=== PATIENT | male | born 1930 | race Caucasian/White ===

== ENCOUNTER 2017-04-19 14:23 | Inpatient (IN) | payer MEDICARE ==
[2017-04-19] VITALS (9 sets, daily range): BP systolic 106–139; BP diastolic 53–86; PULSE 67–85; RESP 14–19; TEMP 97.7–98.4; O2SAT 98–100
[~2017-04-19] VITALS: Ht 175.3 cm; Wt 68.0 kg
[~2017-04-19 14:23] MED LIST changes: -PANT40TA3 PO
[2017-04-19 15:32] LABS: AUTOMATED NEUTROPHIL # 7.5 TH/MM3 (1.8-7.7); BASOPHIL % 0.5 % (0.0-2.0); EOSINOPHIL # 0.1 TH/MM3 (0-0.4); EOSINOPHIL % 1.4 % (0.0-4.0); LYMPH % 5.3 % (9.0-44.0); LYMPHOCYTE # 0.5 TH/MM3 (1.0-4.8); MEAN CELL VOLUME 63.5 FL (80.0-100.0); MEAN CORPUSCULAR HEMOGLOBIN 17.9 PG (27.0-34.0); MEAN PLATELET VOLUME 6.3 FL (7.0-11.0); MONOCYTE # 0.6 TH/MM3 (0-0.9); NEUT % 85.8 % (16.0-70.0); PLATELET COUNT 496 TH/MM3 (150-450); RED BLOOD COUNT 3.05 MIL/MM3 (4.50-5.90); RED CELL DISTRIBUTION WIDTH 20.5 % (11.6-17.2)
[2017-04-19 15:44] LABS: INTERNATIONAL NORMALIZED RATIO 1.1 RATIO; PROTHROMBIN TIME - PATIENT 10.8 SEC (9.8-11.6)
[2017-04-19 15:46] LABS: MEAN CORPUSCULAR HGB CONC 28.1 % (32.0-36.0)
[2017-04-19 15:49] LABS: HEMATOCRIT 19.4 % (39.0-51.0); HEMOGLOBIN 5.5 GM/DL (13.0-17.0); WHITE BLOOD COUNT 8.8 TH/MM3 (4.0-11.0)
[2017-04-19 15:58] LABS: ALBUMIN 2.3 GM/DL (3.4-5.0); AST (GOT) 16 U/L (15-37); BICARBONATE 26.2 MEQ/L (21.0-32.0); BLOOD UREA NITROGEN 21 MG/DL (7-18); CALCIUM 8.4 MG/DL (8.5-10.1); CHLORIDE 107 MEQ/L (98-107); GLOMERULAR FILTRATION RATE 71 ML/MIN (>89); GLUCOSE,RANDOM 100 MG/DL (74-106); SODIUM (NA) 142 MEQ/L (136-145)
[2017-04-19 16:02] LABS: ALKALINE PHOSPHATASE 88 U/L (45-117); ALT (GPT) 11 U/L (12-78); TOTAL BILIRUBIN ADULT 0.5 MG/DL (0.2-1.0); TOTAL PROTEIN 6.9 GM/DL (6.4-8.2)
--- NOTE | 2017-04-19 16:52 | PD ---
HPI Chief Complaint: Abnormal Results Time Seen by Provider: 14:54 Travel History International Travel<30 days: No Contact w/Intl Traveler<30days: No Traveled to known affect area: No History of Present Illness HPI This is an 87-year-old male who presents to the emergency department with anemia. His family member reports that he has been increasingly weak, constant , moderate severity over the past 2 months associated with several episodes of passing out. The patient denies any blood in his stool or black tarry stools. He has a history of colon cancer and has a colostomy. He does not like to go to doctors and has not seen a GI doctor in a long time. He was seen by primary care doctor who ordered routine blood work which was done this morning and he was found to have a hemoglobin of 5.5. PFSH Past Medical History Cancer: Yes (COLON CA) Diminished Hearing: Yes (HEARING AIDS) Medical other: Yes Tetanus Vaccination: > 5 Years Influenza Vaccination: No Past Surgical History Abdominal Surgery: Yes (HERNIA REPAIR) Other Surgery: Yes (COLOSTOMY) Social History Alcohol Use: No Tobacco Use: No Substance Use: No Allergies-Medications (Allergen,Severity, Reaction): Coded Allergies: penicillin G (Verified Allergy, Intermediate, hives, 04/19/17) Reported Meds & Prescriptions Reported Meds & Active Scripts Active No Active Prescriptions or Reported Medications Review of Systems Except as stated in HPI: all other systems reviewed are Neg Physical Exam Narrative GENERAL:Well appearing, no acute distress SKIN: Pale HEAD: Atraumatic. Normocephalic. EYES: Pupils equal and round. No injection or drainage. Pale sclera. ENT: Moist mucous membranes NECK: Trachea midline. CARDIOVASCULAR: Regular rate and rhythm. No murmur appreciated. RESPIRATORY: Clear to auscultation. Breath sounds equal bilaterally. GASTROINTESTINAL: Abdomen soft, non-tender, nondistended. Ostomy is pink, patent and productive. MUSCULOSKELETAL: No obvious deformities. NEUROLOGICAL: Awake and alert. No obvious cranial nerve deficits. Moving all extremities. PSYCHIATRIC: Appropriate mood and affect; insight and judgment normal. Data Data Last Documented VS Vital Signs Date Time Temp Pulse Resp B/P (MAP) Pulse Ox O2 Delivery O2 Flow Rate FiO2 04/19/17 16:44 74 16 120/86 (97) 99 Room Air 04/19/17 14:30 98.2 Orders Orders Complete Blood Count With Diff (04/19/17 14:55) Comprehensive Metabolic Panel (04/19/17 14:55) Prothrombin Time / Inr (Pt) (04/19/17 14:55) Act Partial Throm Time (Ptt) (04/19/17 14:55) Type And Screen (04/19/17 14:55) ^ Insert Iv (04/19/17 14:55) Sodium Chloride 0.9... W/Pantoprazole In (04/19/17 17:46) Sodium Chloride 0.9... W/Pantoprazole In (04/19/17 17:46) Red Blood Cells (Rbc) (04/19/17 16:53) Blood Product Administration (04/19/17 16:53) Sodium Chlor 0.9% 250 Ml Inj (Ns 250 Ml (04/19/17 17:00) Admit Order (Ed Use Only) (04/19/17 16:53) Labs Laboratory Tests Test 04/19/17 15:00 White Blood Count 8.8 TH/MM3 Red Blood Count 3.05 MIL/MM3 Hemoglobin 5.5 GM/DL Hematocrit 19.4 % Mean Corpuscular Volume 63.5 FL Mean Corpuscular Hemoglobin 17.9 PG Mean Corpuscular Hemoglobin Concent 28.1 % Red Cell Distribution Width 20.5 % Platelet Count 496 TH/MM3 Mean Platelet Volume 6.3 FL Neutrophils (%) (Auto) 85.8 % Lymphocytes (%) (Auto) 5.3 % Monocytes (%) (Auto) 7.0 % Eosinophils (%) (Auto) 1.4 % Basophils (%) (Auto) 0.5 % Neutrophils # (Auto) 7.5 TH/MM3 Lymphocytes # (Auto) 0.5 TH/MM3 Monocytes # (Auto) 0.6 TH/MM3 Eosinophils # (Auto) 0.1 TH/MM3 Basophils # (Auto) 0.0 TH/MM3 CBC Comment AUTO DIFF Differential Comment AUTO DIFF CONFIRMED Prothrombin Time 10.8 SEC Prothromb Time International Ratio 1.1 RATIO Activated Partial Thromboplast Time 25.9 SEC Blood Urea Nitrogen 21 MG/DL Creatinine 1.00 MG/DL Random Glucose 100 MG/DL Total Protein 6.9 GM/DL Albumin 2.3 GM/DL Calcium Level 8.4 MG/DL Alkaline Phosphatase 88 U/L Aspartate Amino Transf (AST/SGOT) 16 U/L Alanine Aminotransferase (ALT/SGPT) 11 U/L Total Bilirubin 0.5 MG/DL Sodium Level 142 MEQ/L Potassium Level 4.4 MEQ/L Chloride Level 107 MEQ/L Carbon Dioxide Level 26.2 MEQ/L Anion Gap 9 MEQ/L Estimat Glomerular Filtration Rate 71 ML/MIN MDM Medical Decision Making Medical Screen Exam Complete: Yes Emergency Medical Condition: Yes Interpretation(s) Afebrile, no tachycardia, normotensive Hemoglobin is 5.5 MCV is 63 Electrolytes are reassuring Coags are normal Differential Diagnosis Upper GI bleed, lower GI bleed, anemia of chronic disease, malignancy Narrative Course This is an 87-year-old male who presents to the emergency department with generalized weakness that has been going on for 2 months. He was placed on a monitor and an IV was established. He has a hemoglobin of 5.5 on Labs. Hemoccult is positive. Patient will be placed on IV pantoprazole and admitted for GI consultation and blood transfusion. Physician Communication Physician Communication Discussed with resident service Diagnosis Primary Impression: GI bleed Qualified Codes: K92.2 - Gastrointestinal hemorrhage, unspecified Admitting Information Admitting Physician Requests: Admit Scripts No Active Prescriptions or Reported Meds Natasha Juan MD Apr 19, 2017 16:52
[2017-04-19] MEDS ORDERED: SODIUM CHLOR 0.9% 250 ML INJ 250 ML IV ONE (17:00)
[2017-04-19] MEDS ORDERED: PANTOPRAZOLE INJ 80 MG in SODIUM CHLORIDE 0.9% INJ 35 ML IV ONE (17:46)
[2017-04-19] MEDS: PANTOPRAZOLE INJ 80 MG in SODIUM CHLORIDE 0.9% INJ 100 ML IV SCH (17:46)
--- NOTE | 2017-04-19 18:21 | HHI.HP ---
[facility] Service Family Medicine Primary Care Physician Nikolas Richards M.D. Admission Diagnosis gi bleed Diagnoses: International Travel<30 Days: No Contact w/Intl Traveler<30days: No Known Affected Area: No History of Present Illness 87 y/o M, hx of colon cancer and colostomy placement 5 years ago, is sent in by PCP for low hemoglobin. The patient is disgruntled on the time of exam and it is difficult to obtain a history. He has been feeling more fatigued for the last 2 months. Denies any SOB. He says he was sleeping much more than usual and was fatigued more during they day. He made an appt with his doctor to try to figure out the reason. He has never noticed any blood or black in his stool. He has had some nausea and vomiting x 1.5 months in December and January. It was difficult for him to swallow anything at that time. All these sx went away except for the fatigue. Denies night sweats. On review of systems, He has had mild abdominal for 2 months, a mild burning pain over his umbilical area. Denies CP/SOB/dizziness. He last saw his oncologist 5 years ago. He was due for a checkup 3 years ago and never went. He states his colorectal surgeon has since retired and he no longer has anyone to follow with. Review of Systems Constitutional: COMPLAINS OF: Weight loss (10lbs) Endocrine: DENIES: Polyuria Eyes: DENIES: Blurred vision, Eye pain Ears, nose, mouth, throat: DENIES: Oral lesions, Throat pain Respiratory: DENIES: Cough, Wheezing Cardiovascular: DENIES: Chest pain, Palpitations, Lower Extremity Edema Gastrointestinal: DENIES: Black stools, Bloody stools Genitourinary: DENIES: Urgency, Hematuria Integumentary: DENIES: Nail changes Neurologic: DENIES: Headache, Paresthesias Psychiatric: DENIES: Confusion, Hallucinations Past Family Social History Past Medical History colon cancer with colostomy placement as mentioned in history of present illness Past Surgical History See above Allergies: Coded Allergies: penicillin G (Verified Allergy, Intermediate, hives, 04/19/17) Family History Mother : breast Ca Social History live in [facility] with and daughter and son-in-law, live in a home drinks 2 beers/day, rum & coke once in a while, hx of smoking 0.5ppd x 45yrs + cigars + pipe (quit 5 years ago), denies drug use Physical Exam Vital Signs Vital Signs Date Time Temp Pulse Resp B/P (MAP) Pulse Ox O2 Delivery O2 Flow Rate FiO2 04/19/17 16:44 74 16 120/86 (97) 99 Room Air 04/19/17 14:50 76 16 98 Room Air 04/19/17 14:30 98.2 78 14 119/57 (77) 99 Physical Exam GENERAL: This is a well-nourished, well-developed patient, in no apparent distress. SKIN: No rashes, ecchymoses or lesions. Cool and dry. HEAD: Atraumatic. Normocephalic. No temporal or scalp tenderness. EYES: Pupils equal round and reactive. Extraocular motions intact. No scleral icterus. No injection or drainage. ENT: Nose without bleeding, purulent drainage or septal hematoma. Throat without erythema, tonsillar hypertrophy or exudate. Uvula midline. Airway patent. NECK: Trachea midline. No JVD or lymphadenopathy. Supple, nontender, no meningeal signs. CARDIOVASCULAR: Regular rate and rhythm without murmurs, gallops, or rubs. RESPIRATORY: Clear to auscultation. Breath sounds equal bilaterally. No wheezes , rales, or rhonchi. GASTROINTESTINAL: Abdomen soft, non-tender, nondistended. No hepato-splenomegaly , or palpable masses. No guarding. Colostomy bag in place MUSCULOSKELETAL: Extremities without clubbing, cyanosis, or edema. No joint tenderness, effusion, or edema noted. No calf tenderness. Negative Homans sign bilaterally. NEUROLOGICAL: Awake and alert. Cranial nerves II through XII intact. Motor and sensory grossly within normal limits. Five out of 5 muscle strength in all muscle groups. Normal speech. Laboratory Laboratory Tests Test 04/19/17 15:00 White Blood Count 8.8 Red Blood Count 3.05 Hemoglobin 5.5 Hematocrit 19.4 Mean Corpuscular Volume 63.5 Mean Corpuscular Hemoglobin 17.9 Mean Corpuscular Hemoglobin Concent 28.1 Red Cell Distribution Width 20.5 Platelet Count 496 Mean Platelet Volume 6.3 Neutrophils (%) (Auto) 85.8 Lymphocytes (%) (Auto) 5.3 Monocytes (%) (Auto) 7.0 Eosinophils (%) (Auto) 1.4 Basophils (%) (Auto) 0.5 Neutrophils # (Auto) 7.5 Lymphocytes # (Auto) 0.5 Monocytes # (Auto) 0.6 Eosinophils # (Auto) 0.1 Basophils # (Auto) 0.0 CBC Comment AUTO DIFF Differential Comment AUTO DIFF CONFIRMED Prothrombin Time 10.8 Prothromb Time International Ratio 1.1 Activated Partial Thromboplast Time 25.9 Blood Urea Nitrogen 21 Creatinine 1.00 Random Glucose 100 Total Protein 6.9 Albumin 2.3 Calcium Level 8.4 Alkaline Phosphatase 88 Aspartate Amino Transf (AST/SGOT) 16 Alanine Aminotransferase (ALT/SGPT) 11 Total Bilirubin 0.5 Sodium Level 142 Potassium Level 4.4 Chloride Level 107 Carbon Dioxide Level 26.2 Anion Gap 9 Estimat Glomerular Filtration Rate 71 Result Diagram: 04/19/17149904/19/171499 Septic Shock Reassessment Septic shock perfusion: reassessment completed Caprini VTE Risk Assessment Caprini VTE Risk Assessment: No/Low Risk (score <= 1) Caprini Risk Assessment Model Point Value = 1 Point Value = 2 Point Value = 3 Point Value = 5 Age 41-60 Minor surgery BMI > 25 kg/m2 Swollen legs Varicose veins or History of unexplained or recurrent spontaneous Oral contraceptives or hormone replacement Sepsis (< 1 month) Serious lung disease, including pneumonia (< 1 month) Abnormal pulmonary function Acute myocardial infarction Congestive heart failure (< 1 month) History of inflammatory bowel disease Medical patient at bed rest Age 61-74 Arthroscopic surgery Major open surgery (> 45 min) Laparoscopic surgery (> 45 min) Malignancy Confined to bed (> 72 hours) Immobilizing plaster cast Central venous access Age >= 75 History of VTE Family history of VTE Factor V Leiden Prothrombin 12539L Lupus anticoagulant Anticardiolipin antibodies Elevated serum homocysteine Heparin-induced thrombocytopenia Other congenital or acquired thrombophilia Stroke (< 1 month) Elective arthroplasty Hip, pelvis, or leg fracture Acute spinal cord injury (< 1 month) Prophylaxis Regimen Total Risk Factor Score Risk Level Prophylaxis Regimen 0-1 Low Early ambulation 2 Moderate Order ONE of the following: *Sequential Compression Device (SCD) *Heparin 5000 units SQ BID 3-4 Higher Order ONE of the following medications: *Heparin 5000 units SQ TID *Enoxaparin/Lovenox 40 mg SQ daily (WT < 150 kg, CrCl > 30 mL/min) *Enoxaparin/Lovenox 30 mg SQ daily (WT < 150 kg, CrCl > 10-29 mL/min) *Enoxaparin/Lovenox 30 mg SQ BID (WT < 150 kg, CrCl > 30 mL/min) AND/OR *Sequential Compression Device (SCD) 5 or more Highest Order ONE of the following medications: *Heparin 5000 units SQ TID (Preferred with Epidurals) *Enoxaparin/Lovenox 40 mg SQ daily (WT < 150 kg, CrCl > 30 mL/min) *Enoxaparin/Lovenox 30 mg SQ daily (WT < 150 kg, CrCl > 10-29 mL/min) *Enoxaparin/Lovenox 30 mg SQ BID (WT < 150 kg, CrCl > 30 mL/min) AND *Sequential Compression Device (SCD) Assessment and Plan Assessment and Plan 87-year-old male, history of colon cancer with lost to follow-up, presents with fatigue, anemia, and positive Hemoccult. Discussed Condition With Dr. Arthur Problem List: (1) GI bleed ICD Codes: K92.2 - Gastrointestinal hemorrhage, unspecified Status: Acute Plan: Hemoglobin of 5.5 on admission Positive Hemoccult in ED Follow-up with GI Transfuse 2 units Follow up posttransfusion H&H (2) fen/ppx Status: Acute Plan: Fluids: Continue by mouth fluids Electrolytes: BMP within normal limits Nutrition: By mouth diet GI prophylaxis: Pantoprazole drip DVT prophylaxis: Held Physician Certification 2 Midnight Certification Type: Admission for Inpatient Services Order for Inpatient Services The services are ordered in accordance with Medicare regulations or non- Medicare payer requirements, as applicable. In the case of services not specified as inpatient-only, they are appropriately provided as inpatient services in accordance with the 2-midnight benchmark. Estimated LOS (days): 2 days is the estimated time the patient will need to remain in the hospital, assuming treatment plan goals are met and no additional complications. Post-Hospital Plan: Home Problem Qualifiers (1) GI bleed: Qualified Codes: K92.2 - Gastrointestinal hemorrhage, unspecified Pallavi Carlos MD R2 Apr 19, 2017 18:21
[2017-04-19] MEDS ORDERED: NALOXONE HCL 0.4 MG/ML AMP IV PUSH PRN (19:15)
[2017-04-19] MEDS ORDERED: SENNOSIDES 8.6 MG TAB PO PRN (19:15)
[2017-04-19] MEDS ORDERED: LACTULOSE SYRUP 20 GM/30 ML CUP PO PRN (19:15)
[2017-04-19] MEDS ORDERED: MAGNESIUM HYDROXIDE SUSP 30 ML CUP PO PRN (19:15)
[2017-04-19] MEDS ORDERED: BISACODYL 10 MG SUPP RECTAL PRN (19:15)
[2017-04-19] MEDS ORDERED: SODIUM CHLORIDE 0.9% FLUSH 10 ML FLUSH IV FLUSH PRN (19:15)
[2017-04-19] MEDS: SODIUM CHLORIDE 0.9% FLUSH 10 ML FLUSH IV FLUSH SCH (22:25)
[2017-04-19 22:59] LABS: RETIC # 62.5 MIL/L (20.0-150.0); RETIC % 2.1 % (0.4-3.0)
[2017-04-20] VITALS (15 sets, daily range): BP systolic 106–140; BP diastolic 50–64; PULSE 62–87; RESP 16–20; TEMP 97.3–98.8; O2SAT 95–99
[2017-04-20 00:27] LABS: FOLATE 9.5 NG/ML (3.1-17.5); LDH SERUM 136 U/L (87-241)
[2017-04-20] MEDS: PANTOPRAZOLE INJ 80 MG in SODIUM CHLORIDE 0.9% INJ 100 ML IV SCH ×3 (03:23→23:46)
[2017-04-20] MEDS: SODIUM CHLOR 0.9% 1000 ML INJ 1,000 ML IV SCH ×3 (09:57→21:48)
[2017-04-20] MEDS: SODIUM CHLORIDE 0.9% FLUSH 10 ML FLUSH IV FLUSH SCH ×2 (09:57→21:00)
[2017-04-20 10:06] LABS: BICARBONATE 24.2 MEQ/L (21.0-32.0); CALCIUM 8.4 MG/DL (8.5-10.1); CREATININE 1.04 MG/DL (0.60-1.30)
[2017-04-20 10:09] LABS: AUTOMATED NEUTROPHIL # 6.4 TH/MM3 (1.8-7.7); BASOPHIL % 0.3 % (0.0-2.0); EOSINOPHIL # 0.2 TH/MM3 (0-0.4); EOSINOPHIL % 2.4 % (0.0-4.0); HEMATOCRIT 23.1 % (39.0-51.0); HEMOGLOBIN 7.1 GM/DL (13.0-17.0); LYMPH % 6.7 % (9.0-44.0); LYMPHOCYTE # 0.5 TH/MM3 (1.0-4.8); MEAN CELL VOLUME 67.9 FL (80.0-100.0); MEAN CORPUSCULAR HEMOGLOBIN 20.9 PG (27.0-34.0); MEAN CORPUSCULAR HGB CONC 30.8 % (32.0-36.0); MEAN PLATELET VOLUME 6.6 FL (7.0-11.0); MONO % 9.4 % (0.0-8.0); MONOCYTE # 0.7 TH/MM3 (0-0.9); NEUT % 81.2 % (16.0-70.0); PLATELET COUNT 437 TH/MM3 (150-450); WHITE BLOOD COUNT 7.9 TH/MM3 (4.0-11.0)
--- NOTE | 2017-04-20 11:26 | PD.CONS ---
HPI History of Present Illness 87 y/o M, hx of colon cancer and colostomy placement 5 years ago, who was sent to [facility] for evaluation of low hgb noted on out patient labs ordered by pcp. He has been feeling more fatigued for the last 2 months. Reports nausea and vomiting for the last 2 months, has lost about 10 lbs. Sates he hasn't been eating much due to the food getting stuck in lower esophageus after few bites. States, he hasn't had nausea, vomiting or dysphagia for 2 weeks now. Denies any melena, hematochezia or hematemesis. States the stools normally loose in the colostomy. Hemoglobin of 5.5 on admission, today is 7.1 s/p 2 units of blood. He was found positive Hemoccult. CT of abd/pel showed left sided reanl cyst, right sided renal cyst and large renal stones without obstruction (Parker Marroquin) PFSH Past Medical History colon cancer with colostomy placement Past Surgical History colon cancer with colostomy placement (Parker Marroquin) Coded Allergies: penicillin G (Verified Allergy, Intermediate, hives, 04/19/17) Medications Current Medications Medications (Trade) Dose Ordered Sig/Dash Route Start Time Stop Time Status Last Admin Pantoprazole Sodium 80 mg/ Sodium Chloride 100 ml @ 10 mls/hr Q10H IV 04/19/17 17:46 04/20/17 03:23 (NS Flush) 2 ml UNSCH PRN IV FLUSH 04/19/17 19:15 (NS Flush) 2 ml BID IV FLUSH 04/19/17 21:00 04/20/17 09:57 (Narcan Inj) 0.4 mg UNSCH PRN IV PUSH 04/19/17 19:15 (Milk Of Magnesia Liq) 30 ml Q12H PRN PO 04/19/17 19:15 (Senokot) 17.2 mg Q12H PRN PO 04/19/17 19:15 (Dulcolax Supp) 10 mg DAILY PRN RECTAL 04/19/17 19:15 (Lactulose Liq) 30 ml DAILY PRN PO 04/19/17 19:15 Sodium Chloride 1,000 ml @ 100 mls/hr Q10H IV 04/20/17 06:45 04/20/17 09:57 Family History Mother : breast Ca Social History drinks 2 beers/day Former smoker (Parker Marroquin) Review of Systems Constitutional: COMPLAINS OF: Fatigue, Weight loss, Chills Endocrine: DENIES: Polyuria Eyes: DENIES: Double Vision Ears, nose, mouth, throat: DENIES: Hoarseness Respiratory: DENIES: Shortness of breath Cardiovascular: DENIES: Lower Extremity Edema Gastrointestinal: COMPLAINS OF: Diarrhea, Nausea, Vomiting, Difficulty Swallowing, Anorexia, DENIES: Abdominal pain, Black stools, Bloody stools, Constipation, Odynophagia, Swelling of Abdomen, Heartburn, Hematemesis Genitourinary: DENIES: Hematuria Musculoskeletal: DENIES: Neck pain Integumentary: DENIES: Jaundice Hematologic/lymphatic: DENIES: Bruising Immunologic/allergic: DENIES: Eczema Neurologic: DENIES: Abnormal gait Psychiatric: DENIES: Anxiety (Parker Marroquin) GI Exam Vitals I&O Vital Signs Date Time Temp Pulse Resp B/P (MAP) Pulse Ox O2 Delivery O2 Flow Rate FiO2 04/20/17 08:00 97.3 72 16 130/64 (86) 99 04/20/17 06:45 98.3 69 18 140/61 97 04/20/17 03:47 64 04/20/17 03:12 98.2 67 17 112/55 97 04/20/17 03:07 98.6 67 19 119/58 98 04/20/17 03:02 98.2 65 17 115/57 98 04/20/17 02:22 98.5 66 16 111/58 97 04/20/17 00:00 98.8 69 16 110/55 (73) 98 04/19/17 23:48 67 04/19/17 22:35 98.3 74 17 106/53 98 04/19/17 22:30 97.7 69 19 112/55 98 04/19/17 22:25 98.4 70 16 111/73 99 04/19/17 21:51 85 04/19/17 20:00 97.8 75 16 139/66 (90) 100 04/19/17 19:52 70 20 127/60 (82) 98 04/19/17 16:44 74 16 120/86 (97) 99 Room Air 1/19/18 14:50 76 16 98 Room Air 04/19/17 14:30 98.2 78 14 119/57 (77) 99 I/O 04/19/17 04/19/17 04/19/17 04/20/17 04/20/17 04/20/17 07:00 15:00 23:00 07:00 15:00 23:00 Intake Total 935 ml Output Total 240 ml Balance 695 ml Intake Oral 240 ml Packed Cells 675 ml Blood Product IV Normal Saline Flush 20 ml Output Urine Total 240 ml Laboratory Test 04/19/17 15:00 04/20/17 08:08 White Blood Count 8.8 TH/MM3 7.9 TH/MM3 Red Blood Count 3.05 MIL/MM3 3.40 MIL/MM3 Hemoglobin 5.5 GM/DL 7.1 GM/DL Hematocrit 19.4 % 23.1 % Mean Corpuscular Volume 63.5 FL 67.9 FL Mean Corpuscular Hemoglobin 17.9 PG 20.9 PG Mean Corpuscular Hemoglobin Concent 28.1 % 30.8 % Red Cell Distribution Width 20.5 % 24.0 % Platelet Count 496 TH/MM3 437 TH/MM3 Mean Platelet Volume 6.3 FL 6.6 FL Neutrophils (%) (Auto) 85.8 % 81.2 % Lymphocytes (%) (Auto) 5.3 % 6.7 % Monocytes (%) (Auto) 7.0 % 9.4 % Eosinophils (%) (Auto) 1.4 % 2.4 % Basophils (%) (Auto) 0.5 % 0.3 % Neutrophils # (Auto) 7.5 TH/MM3 6.4 TH/MM3 Lymphocytes # (Auto) 0.5 TH/MM3 0.5 TH/MM3 Monocytes # (Auto) 0.6 TH/MM3 0.7 TH/MM3 Eosinophils # (Auto) 0.1 TH/MM3 0.2 TH/MM3 Basophils # (Auto) 0.0 TH/MM3 0.0 TH/MM3 CBC Comment AUTO DIFF DIFF FINAL Differential Comment AUTO DIFF CONFIRMED Reticulocyte Count 2.1 % Absolute Reticulocyte Count 62.5 MIL/L Haptoglobin 336 MG/DL Prothrombin Time 10.8 SEC Prothromb Time International Ratio 1.1 RATIO Activated Partial Thromboplast Time 25.9 SEC Blood Urea Nitrogen 21 MG/DL 18 MG/DL Creatinine 1.00 MG/DL 1.04 MG/DL Random Glucose 100 MG/DL 82 MG/DL Total Protein 6.9 GM/DL Albumin 2.3 GM/DL Calcium Level 8.4 MG/DL 8.4 MG/DL Alkaline Phosphatase 88 U/L Aspartate Amino Transf (AST/SGOT) 16 U/L Alanine Aminotransferase (ALT/SGPT) 11 U/L Total Bilirubin 0.5 MG/DL Sodium Level 142 MEQ/L 141 MEQ/L Potassium Level 4.4 MEQ/L 4.4 MEQ/L Chloride Level 107 MEQ/L 109 MEQ/L Carbon Dioxide Level 26.2 MEQ/L 24.2 MEQ/L Anion Gap 9 MEQ/L 8 MEQ/L Estimat Glomerular Filtration Rate 71 ML/MIN 68 ML/MIN Lactate Dehydrogenase 136 U/L Vitamin B12 Level GREATER THAN 2000 PG/ML Folate 9.5 NG/ML Physical Examination HEENT: normocephalic; atraumatic; no jaundice. NECK: Neck is supple, no JVD, no lymphadenopathy. CHEST: Chest is clear to auscultation and percussion. CARDIAC: Regular rate and rhythm with no murmur gallop or rubs. ABDOMEN: Soft, nondistended, nontender; no hepatosplenomegaly; bowel sounds are present in all four quadrants.colostomy in llq EXTREMITIES: No clubbing, cyanosis, or edema. SKIN: Normal; no rash; no jaundice. DRY HOUSE TENDER: No focal deficits; alert and oriented times three. (Parker Marroquin) Assessment and Plan Plan - Profound anemia/ Hemoglobin of 5.5 on admission, today is 7.1 s/p 2 units of blood. He was found positive Hemoccult. hx of colon cancer and colostomy placement 5 years ago,CT of abd/pel showed left sided renal cyst, right sided renal cyst and large renal stones without obstruction will need colonoscopy for evaluation - Dysphagia/ N/V for 2 months- Has resolved 2 weeks ago, will order EGD, on Protonix - Wt loss of 10 lbs over the last 2 months Plan: - ANNE - EGD/colonoscopy on Saturday - Clear liquid in the am - Obtain consents - Monitor hh - Transfuse as needed - Cont Protonix - Patient seen and examined by Dr. Haque and myself and this note is written on his behalf (Parker Marroquin) Physician Comments Patient seen and examined Agree with above Continue with current supportive care Monitor labs EGD colon On Saturday (Geo Haque MD) Parker Marroquin Apr 20, 2017 11:26 Geo Haque MD Apr 20, 2017 21:42
--- NOTE | 2017-04-20 12:49 | HHI.FPPN ---
Subjective Remarks Attending admission note: Very pleasant 87-year-old gentleman admitted with a hemoglobin of 5.5, dysphagia, 10+ pounds loss over the last several months, diminished appetite. Patient saw his primary physician Dr. Nikolas Barba, ordered lab and the CBC notable for the profound anemia. No prior history of anemia, no usage of aspirin or NSAIDs, no reported excessive use of alcohol. Notable past medical history of colon cancer treated with colon resection and colostomy. Does not remember his surgeon's name, did see Dr. Tarango for chemotherapy. Had received preoperative radiation however apparently opted not to return for continued care. Please refer to resident note for complete discussion of past medical history, family history, social and review of systems Objective Vitals Vital Signs Date Time Temp Pulse Resp B/P (MAP) Pulse Ox O2 Delivery O2 Flow Rate FiO2 04/20/17 08:00 97.3 72 16 130/64 (86) 99 04/20/17 06:45 98.3 69 18 140/61 97 04/20/17 03:47 64 04/20/17 03:12 98.2 67 17 112/55 97 04/20/17 03:07 98.6 67 19 119/58 98 04/20/17 03:02 98.2 65 17 115/57 98 04/20/17 02:22 98.5 66 16 111/58 97 04/20/17 00:00 98.8 69 16 110/55 (73) 98 04/19/17 23:48 67 04/19/17 22:35 98.3 74 17 106/53 98 04/19/17 22:30 97.7 69 19 112/55 98 04/19/17 22:25 98.4 70 16 111/73 99 04/19/17 21:51 85 04/19/17 20:00 97.8 75 16 139/66 (90) 100 04/19/17 19:52 70 20 127/60 (82) 98 04/19/17 16:44 74 16 120/86 (97) 99 Room Air 04/19/17 14:50 76 16 98 Room Air 04/19/17 14:30 98.2 78 14 119/57 (77) 99 I/O 04/19/17 04/19/17 04/19/17 04/20/17 04/20/17 04/20/17 07:00 15:00 23:00 07:00 15:00 23:00 Intake Total 935 ml Output Total 240 ml Balance 695 ml Intake Oral 240 ml Packed Cells 675 ml Blood Product IV Normal Saline Flush 20 ml Output Urine Total 240 ml Result Diagram: 04/20/17 0808 04/20/17 0808 Objective Remarks Vital signs noted. Quite stable on admission. Examined in the emergency room on the evening of 04/19/17. HEENT: Grossly nonlocalizing. Neck: No bruits. Lungs: Diminished clear breath sounds. Atelectatic Rales at bases. Cardiac: S1-S2, no S3 or murmurs, heart sounds are somewhat distant. Abdomen soft, presence of a ostomy bag, no organomegaly, no tenderness, no pulsatile masses. Extremities: Without edema, intact pedal pulses. Warm and dry. A/P Assessment and Plan 87-year-old male, history of colon cancer with lost to follow-up, presents with fatigue, anemia, and positive Hemoccult. Hemoglobin 5.5, to be transfused to 8. GI consultation. Follow clinically. Concerns regarding compliance when he leaves home. Case reviewed and discussed with the resident team. Agree with plan of care is discussed with me and documented in the resident note. Problem List: (1) GI bleed ICD Codes: K92.2 - Gastrointestinal hemorrhage, unspecified Status: Acute Plan: Hemoglobin of 5.5 on admission Positive Hemoccult in ED Follow-up with GI Transfuse 2 units Follow up posttransfusion H&H (2) fen/ppx Status: Acute Plan: Fluids: Continue by mouth fluids Electrolytes: BMP within normal limits Nutrition: By mouth diet GI prophylaxis: Pantoprazole drip DVT prophylaxis: Held Problem Qualifiers (1) GI bleed: Qualified Codes: K92.2 - Gastrointestinal hemorrhage, unspecified Farhan Arthur MD Apr 20, 2017 12:49
[2017-04-20] MEDS ORDERED: SODIUM CHLOR 0.9% 250 ML INJ 250 ML IV ONE (15:30)
[2017-04-20] MEDS ORDERED: diphenhydrAMINE HCL 25 MG CAP PO PRN (15:30)
[2017-04-20] MEDS ORDERED: ACETAMINOPHEN 325 MG TAB PO PRN (15:30)
[2017-04-20 23:37] LABS: HEMATOCRIT 24.1 % (39.0-51.0); HEMOGLOBIN 7.6 GM/DL (13.0-17.0)
[2017-04-21] VITALS (10 sets, daily range): BP systolic 114–137; BP diastolic 58–67; PULSE 59–83; RESP 18–20; TEMP 96.7–99.6; O2SAT 96–98
[2017-04-21] MEDS: SODIUM CHLOR 0.9% 1000 ML INJ 1,000 ML IV SCH ×2 (05:13→20:20)
[2017-04-21 06:48] LABS: ALBUMIN 1.8 GM/DL (3.4-5.0); ALT (GPT) 8 U/L (12-78); AST (GOT) 9 U/L (15-37); BICARBONATE 23.7 MEQ/L (21.0-32.0); BLOOD UREA NITROGEN 15 MG/DL (7-18); CALCIUM 7.7 MG/DL (8.5-10.1); CHLORIDE 110 MEQ/L (98-107); CREATININE 0.82 MG/DL (0.60-1.30); GLOMERULAR FILTRATION RATE 89 ML/MIN (>89); GLUCOSE,RANDOM 97 MG/DL (74-106); SODIUM (NA) 140 MEQ/L (136-145)
[2017-04-21 06:48] LABS: AUTOMATED NEUTROPHIL # 6.5 TH/MM3 (1.8-7.7); BASOPHIL % 0.4 % (0.0-2.0); EOSINOPHIL # 0.3 TH/MM3 (0-0.4); EOSINOPHIL % 3.3 % (0.0-4.0); HEMOGLOBIN 7.4 GM/DL (13.0-17.0); LYMPH % 5.5 % (9.0-44.0); LYMPHOCYTE # 0.4 TH/MM3 (1.0-4.8); MEAN CELL VOLUME 68.8 FL (80.0-100.0); MEAN CORPUSCULAR HEMOGLOBIN 22.1 PG (27.0-34.0); MEAN CORPUSCULAR HGB CONC 32.2 % (32.0-36.0); MEAN PLATELET VOLUME 6.4 FL (7.0-11.0); MONO % 8.4 % (0.0-8.0); MONOCYTE # 0.7 TH/MM3 (0-0.9); NEUT % 82.4 % (16.0-70.0); PLATELET COUNT 380 TH/MM3 (150-450); RED BLOOD COUNT 3.34 MIL/MM3 (4.50-5.90); RED CELL DISTRIBUTION WIDTH 24.5 % (11.6-17.2); WHITE BLOOD COUNT 7.9 TH/MM3 (4.0-11.0)
[2017-04-21 06:56] LABS: ALKALINE PHOSPHATASE 73 U/L (45-117); TOTAL BILIRUBIN ADULT 1.2 MG/DL (0.2-1.0); TOTAL PROTEIN 5.4 GM/DL (6.4-8.2)
[2017-04-21] MEDS: SODIUM CHLORIDE 0.9% FLUSH 10 ML FLUSH IV FLUSH SCH ×2 (08:51→20:21)
--- NOTE | 2017-04-21 09:48 | HHI.FPPN ---
Subjective Remarks Pt seen and examined bedside this morning. He was eating without difficulty yesterday and is unsure why he is on liquid diet today. He denies any chest pain /shortness breath/dizziness. He has no pain or complaints. He is ambulating and voiding without difficulty. Objective Vitals Vital Signs Date Time Temp Pulse Resp B/P (MAP) Pulse Ox O2 Delivery O2 Flow Rate FiO2 04/21/17 07:53 98.4 59 18 114/60 (78) 96 04/21/17 04:00 99.1 65 20 133/59 (83) 98 04/21/17 03:50 60 04/21/17 00:01 60 04/21/17 00:00 98.5 63 18 126/59 (81) 97 04/20/17 21:40 98.1 62 16 110/59 96 04/20/17 20:04 64 04/20/17 20:00 97.5 63 20 123/61 (81) 98 04/20/17 18:11 98.5 71 16 111/59 98 04/20/17 18:05 98.4 77 17 121/60 98 04/20/17 18:00 98.8 87 16 115/58 97 04/20/17 12:00 97.4 76 18 106/50 (68) 95 I/O 04/20/17 04/20/17 04/20/17 04/21/17 04/21/17 04/21/17 07:00 15:00 23:00 07:00 15:00 23:00 Intake Total 935 ml 480 ml 1500 ml Output Total 240 ml 275 ml 300 ml Balance 695 ml 205 ml 1200 ml Intake Oral 240 ml 480 ml 240 ml IV Total 1260 ml Packed Cells 675 ml Blood Product IV Normal Saline Flush 20 ml Output Urine Total 240 ml 275 ml 300 ml # Voids 1 # Bowel Movements 0 Result Diagram: 04/21/17 0558 04/21/17 0538 Objective Remarks Vital signs noted. Quite stable on admission. Examined in the emergency room on the evening of 04/19/17. HEENT: Grossly nonlocalizing. Neck: No bruits. Lungs: Diminished clear breath sounds. Atelectatic Rales at bases. Cardiac: S1-S2, no S3 or murmurs, heart sounds are somewhat distant. Abdomen soft, presence of a ostomy bag, no organomegaly, no tenderness, no pulsatile masses. Extremities: Without edema, intact pedal pulses. Warm and dry. A/P Assessment and Plan 87-year-old male, history of colon cancer with lost to follow-up, presents with fatigue, anemia, and positive Hemoccult. Hemoglobin 5.5, to be transfused to 8. GI consultation. Follow clinically. Concerns regarding compliance when he leaves home. Case reviewed and discussed with the resident team. Agree with plan of care is discussed with me and documented in the resident note. Problem List: (1) GI bleed ICD Codes: K92.2 - Gastrointestinal hemorrhage, unspecified Status: Acute Plan: Hemoglobin of 5.5 on admission Positive Hemoccult in ED Follow-up with GI Transfuse 2 units posttransfusion H&H: 7.1 Serial H&H: 7.1, 7.6, 7.4 stabilized f/u EGD/colonoscopy results tomorrow (2) fen/ppx Status: Acute Plan: Fluids: Continue by mouth fluids Electrolytes: BMP within normal limits Nutrition: By mouth diet GI prophylaxis: Pantoprazole drip DVT prophylaxis: Held Problem Qualifiers (1) GI bleed: Qualified Codes: K92.2 - Gastrointestinal hemorrhage, unspecified Pallavi Carlos MD R2 Apr 21, 2017 09:48
[2017-04-21] MEDS: PANTOPRAZOLE INJ 80 MG in SODIUM CHLORIDE 0.9% INJ 100 ML IV SCH ×3 (10:00→20:20)
[2017-04-21] MEDS ORDERED: MAGNESIUM CITRATE SOLN 300 ML BTL PO ONE ×2 (14:30→20:00)
[2017-04-21] MEDS ORDERED: PEG (High)/E-LYTE SOLN 4000 ML BTL PO ONE (16:00)
[2017-04-21] MEDS ORDERED: CHLORHEXIDINE GLUCONATE 2 % 1 PACK (2 CLOTHS) TOPICAL PRN (23:00)
[2017-04-21] MEDS ORDERED: SODIUM CHLORID 0.9% 500 ML IV PRN (23:00)
[2017-04-21] MEDS ORDERED: POVIDONE IODINE 5% (ANTISEPSIS KIT) 4 APPLICATIONS EACH NARE PRN (23:00)
[2017-04-21] MEDS ORDERED: LACTATED RINGER'S 1000 ML IV PRN (23:00)
[2017-04-21] MEDS ORDERED: METOPROLOL TARTRATE 25 MG TAB PO PRN (23:00)
--- NOTE | 2017-04-21 23:36 | HHI.GIFU ---
Subjective Remarks Comfortable in bed no new complaints and no signs of bleeding Objective Vitals I&O Vital Signs Date Time Temp Pulse Resp B/P (MAP) Pulse Ox O2 Delivery O2 Flow Rate FiO2 04/21/17 21:13 67 04/21/17 19:25 96.7 83 18 137/67 (90) 97 04/21/17 15:40 99.6 67 19 123/58 (79) 97 04/21/17 11:47 98.9 60 18 123/63 (83) 96 04/21/17 10:52 68 04/21/17 07:53 98.4 59 18 114/60 (78) 96 04/21/17 04:00 99.1 65 20 133/59 (83) 98 04/21/17 03:50 60 04/21/17 00:01 60 04/21/17 00:00 98.5 63 18 126/59 (81) 97 I/O 04/21/17 04/21/17 04/21/17 04/22/17 04/22/17 04/22/17 07:00 15:00 23:00 07:00 15:00 23:00 Intake Total 1500 ml 720 ml 480 ml Output Total 300 ml 700 ml 200 ml Balance 1200 ml 20 ml 280 ml Intake Oral 240 ml 720 ml 480 ml IV Total 1260 ml Output Urine Total 300 ml 700 ml 200 ml # Voids 1 4 # Bowel Movements 0 1 Laboratory Laboratory Tests Test 04/21/17 05:38 04/21/17 05:58 Blood Urea Nitrogen 15 Creatinine 0.82 Random Glucose 97 Total Protein 5.4 Albumin 1.8 Calcium Level 7.7 Alkaline Phosphatase 73 Aspartate Amino Transf (AST/SGOT) 9 Alanine Aminotransferase (ALT/SGPT) 8 Total Bilirubin 1.2 Sodium Level 140 Potassium Level 4.0 Chloride Level 110 Carbon Dioxide Level 23.7 Anion Gap 6 Estimat Glomerular Filtration Rate 89 White Blood Count 7.9 Red Blood Count 3.34 Hemoglobin 7.4 Hematocrit 23.0 Mean Corpuscular Volume 68.8 Mean Corpuscular Hemoglobin 22.1 Mean Corpuscular Hemoglobin Concent 32.2 Red Cell Distribution Width 24.5 Platelet Count 380 Mean Platelet Volume 6.4 Neutrophils (%) (Auto) 82.4 Lymphocytes (%) (Auto) 5.5 Monocytes (%) (Auto) 8.4 Eosinophils (%) (Auto) 3.3 Basophils (%) (Auto) 0.4 Neutrophils # (Auto) 6.5 Lymphocytes # (Auto) 0.4 Monocytes # (Auto) 0.7 Eosinophils # (Auto) 0.3 Basophils # (Auto) 0.0 CBC Comment DIFF FINAL Differential Comment Physical Exam HEENT: normocephalic; atraumatic; no jaundice. Throat is clear. NECK: Neck is supple, no JVD,. CHEST: Chest is clear to auscultation and percussion. CARDIAC: Regular rate and rhythm with no murmur gallop or rubs. ABDOMEN: Soft, nondistended, nontender; no hepatosplenomegaly; bowel sounds are present in all four quadrants. EXTREMITIES: No clubbing, cyanosis, or edema. SKIN: Normal; no rash; no jaundice. PARACHUTE PACKER: No focal deficits; Assessment and Plan Plan - Profound anemia/ Hemoglobin of 5.5 on admission, today is 7.1 s/p 2 units of blood. He was found positive Hemoccult. hx of colon cancer and colostomy placement 5 years ago,CT of abd/pel showed left sided renal cyst, right sided renal cyst and large renal stones without obstruction will need colonoscopy for evaluation - Dysphagia/ N/V for 2 months- Has resolved 2 weeks ago, will order EGD, on Protonix - Wt loss of 10 lbs over the last 2 months Plan: - ANNE - EGD/colonoscopy on tomorrow - Clear liquid in the am - Obtain consents - Monitor hh - Transfuse as needed - Cont Protonix Geo Haque MD Apr 21, 2017 23:36
[2017-04-22] VITALS: BP 151/62; PULSE 74; RESP 18; TEMP 98.4; O2SAT 99
[2017-04-22 00:19] VITALS: PULSE 70
[2017-04-22 04:00] VITALS: BP 132/62; PULSE 69; RESP 18; TEMP 98.1; O2SAT 97
[2017-04-22] MEDS: SODIUM CHLOR 0.9% 1000 ML INJ 1,000 ML IV SCH (04:03)
[2017-04-22] MEDS: PANTOPRAZOLE INJ 80 MG in SODIUM CHLORIDE 0.9% INJ 100 ML IV SCH (04:03)
[2017-04-22 04:06] VITALS: PULSE 70
[2017-04-22] MEDS ORDERED: MAGNESIUM CITRATE SOLN 300 ML BTL PO ONE (05:00)
[2017-04-22 06:09] LABS: AUTOMATED NEUTROPHIL # 5.4 TH/MM3 (1.8-7.7); BASOPHIL # 0.1 TH/MM3 (0-0.2); EOSINOPHIL # 0.2 TH/MM3 (0-0.4); EOSINOPHIL % 2.6 % (0.0-4.0); HEMATOCRIT 25.7 % (39.0-51.0); HEMOGLOBIN 8.1 GM/DL (13.0-17.0); LYMPH % 5.5 % (9.0-44.0); LYMPHOCYTE # 0.4 TH/MM3 (1.0-4.8); MEAN CORPUSCULAR HGB CONC 31.4 % (32.0-36.0); MEAN PLATELET VOLUME 6.6 FL (7.0-11.0); MONO % 9.8 % (0.0-8.0); MONOCYTE # 0.7 TH/MM3 (0-0.9); NEUT % 81.1 % (16.0-70.0); PLATELET COUNT 390 TH/MM3 (150-450); RED BLOOD COUNT 3.67 MIL/MM3 (4.50-5.90); RED CELL DISTRIBUTION WIDTH 24.7 % (11.6-17.2); WHITE BLOOD COUNT 6.6 TH/MM3 (4.0-11.0)
[2017-04-22 06:26] LABS: BICARBONATE 21.7 MEQ/L (21.0-32.0); CALCIUM 7.9 MG/DL (8.5-10.1); CREATININE 0.91 MG/DL (0.60-1.30)
[2017-04-22 08:00] VITALS: BP 112/53; PULSE 67; RESP 17; TEMP 98; O2SAT 96
[2017-04-22] MEDS: SODIUM CHLORIDE 0.9% FLUSH 10 ML FLUSH IV FLUSH SCH (09:00)
--- NOTE | 2017-04-22 09:54 | HHI.FPPN ---
Subjective Remarks Patient seen and examined at bedside. No acute events overnight. Pt denies CP or SOB. No complaints, awaiting EGD and colonoscopy procedure. Objective Vitals Vital Signs Date Time Temp Pulse Resp B/P (MAP) Pulse Ox O2 Delivery O2 Flow Rate FiO2 04/22/17 08:05 Room Air 04/22/17 08:00 98.0 67 17 112/53 (72) 96 04/22/17 04:06 70 04/22/17 04:00 98.1 69 18 132/62 (85) 97 04/22/17 00:19 70 04/22/17 00:00 98.4 74 18 151/62 (91) 99 04/21/17 21:13 67 04/21/17 19:25 96.7 83 18 137/67 (90) 97 04/21/17 15:40 99.6 67 19 123/58 (79) 97 04/21/17 11:47 98.9 60 18 123/63 (83) 96 04/21/17 10:52 68 I/O 04/21/17 04/21/17 04/21/17 04/22/17 04/22/17 04/22/17 07:00 15:00 23:00 07:00 15:00 23:00 Intake Total 1500 ml 720 ml 480 ml 1320 ml Output Total 300 ml 700 ml 200 ml Balance 1200 ml 20 ml 280 ml 1320 ml Intake Oral 240 ml 720 ml 480 ml 0 ml IV Total 1260 ml 1320 ml Output Urine Total 300 ml 700 ml 200 ml # Voids 1 4 2 # Bowel Movements 0 1 0 Result Diagram: 04/22/17 0534 04/22/17 0534 Objective Remarks GEN: NAD, standing up in room. HEENT: Grossly nonlocalizing. Neck: No bruits. Lungs: CTA BL. Cardiac: S1-S2, no S3 or murmurs, heart sounds are somewhat distant. Abdomen soft, presence of a ostomy bag, no organomegaly, no tenderness, no pulsatile masses. Extremities: Without edema, intact pedal pulses. Warm and dry. A/P Assessment and Plan 87-year-old male, history of colon cancer with lost to follow-up, presents with fatigue, anemia, and positive Hemoccult. Hemoglobin 5.5, to be transfused to 8. GI consultation. Follow clinically. Concerns regarding compliance when he leaves home. Case reviewed and discussed with the resident team. Agree with plan of care is discussed with me and documented in the resident note. Hemodynamically stable and asymptomatic. Problem List: (1) GI bleed ICD Codes: K92.2 - Gastrointestinal hemorrhage, unspecified Status: Acute Plan: Hemoglobin of 5.5 on admission Positive Hemoccult in ED Follow-up with GI recommendation s/p Transfusion of 3 units PRBCs posttransfusion H&H: 7.1 H&H 04/22: 8.1/25.7, stable - EGD/colonoscopy scheduled for today (2) fen/ppx Status: Acute Plan: Fluids: IVF 100mls/hr Electrolytes: BMP within normal limits, replete as needed Nutrition: NPO since midnight pending GI procedure GI prophylaxis: Pantoprazole drip DVT prophylaxis: Held Problem Qualifiers (1) GI bleed: Qualified Codes: K92.2 - Gastrointestinal hemorrhage, unspecified Pepper Zhong MD, R1 Apr 22, 2017 09:54
--- NOTE | 2017-04-22 10:26 | GIPROC ---
[facility] [address] [facility]. [facility], [address] EGD PROCEDURE REPORT EXAM DATE: 04/22/2017 PATIENT NAME: Jairo Ponce MR #: [id number] BIRTHDATE: 1930 ATTENDING: Brenda Hardwick MD ORDER #: [id number] JIVE DEVELOPER: Tierra Xie and Gilmar Colindres STATUS: inpatient INDICATIONS: The patient is a 87 yr old male here for an EGD due to iron deficiency anemia PROCEDURE PERFORMED: EGD w/ dilation of esophagus via guidewire MEDICATIONS: None and Per Anesthesia. TOPICAL ANESTHETIC: CONSENT: The patient understands the risks and benefits of the procedure and understands that these risks include, but are not limited to: sedation, allergic reaction, infection, perforation and/or bleeding. Alternative means of evaluation and treatment include, among others: physical exam, x-rays, and/or surgical intervention. The patient elects to proceed with this endoscopic procedure. medical equipment was checked for proper function. Hand hygiene and appropriate measures for infection prevention was taken. After the risks, benefits and alternatives of the procedure were thoroughly explained, Informed consent was verified, confirmed and timeout was successfully executed by the treatment team. The patient was anesthetized with topical anesthesia and the EC-3490Li (Pedi C) endoscope was introduced through the mouth and advanced to the second portion of the duodenum. Retroflexed views revealed no abnormalities The gastroscope was then slowly withdrawn and removed. 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 The stricture was not traversable. The stricture was dilated using a 17mm (51Fr) savary dilator over guidewire. Following this dilation, there was a medium sized mucosal rent. STOMACH: There was mild gastritis on the greater curve of the stomach and in the gastric antrum. DUODENUM: The duodenal mucosa appeared normal in the bulb and second portion of the duodenum. ADVERSE EVENTS: There were no complications. IMPRESSIONS: 1. 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 There was mild gastritis on the greater curve of the stomach and in the gastric antrum 3. Normal duodenal mucosa in the bulb and second portion of the duodenum 4. Retroflexed views revealed no abnormalities RECOMMENDATIONS: 1. Await biopsy results. Biopsy results will not be ready for 7-10 days. If you don't hear from us in two weeks, call our office for biopsy results. 2. Anti-reflux regimen 3. Continue PPI PATIENT CONDITION: stable DISPOSITION: Inpatient REPEAT EXAM: Return 1 year Dilatation Brenda Hardwick MD eSigned: Brenda Hardwick MD 04/22/2017 10:26 AM cc: PATIENT NAME: Jairo Ponce MR#: [id number]
--- NOTE | 2017-04-22 10:30 | GIPROC ---
[facility] [address] [facility]. [facility], [address] COLONOSCOPY PROCEDURE REPORT EXAM DATE: 04/22/2017 PATIENT NAME: Jairo Ponce MR #: [id number] BIRTHDATE: 1930 ENDOSCOPIST: Brenda Hardwick MD ORDER #: [id number] EQUIP TECH: Tierra Xie and Gilmar Colindres STATUS: inpatient INDICATIONS: The patient is a 87 yr old male here for a colonoscopy due to iron deficiency anemia PROCEDURE PERFORMED: Colonoscopy via stoma and biopsy MEDICATIONS: None and Per Anesthesia. PREP QUALITY: good PREP TYPE:GoLytely ESTIMATED BLOOD LOSS: None CONSENT: The patient understands the risks and benefits of the procedure and understands that these risks include, but are not limited to: sedation, allergic reaction, infection, perforation and/or bleeding. Alternative means of evaluation and treatment include, among others: physical exam, x-rays, and/or surgical intervention. The patient elects to proceed with this endoscopic procedure. medical equipment was checked for proper function. Hand hygiene and appropriate measures for infection prevention was taken. After the risks, benefits and alternatives of the procedure were thoroughly explained, Informed consent was verified, confirmed and timeout was successfully executed by the treatment team. A digital exam was not performed The Pentax EC-[id number] endoscope was introduced through the anus and advanced to the cecum, which was identified by both the appendix and ileocecal valve. The instrument was then slowly withdrawn as the colon was fully examined. COLON FINDINGS: A circumferential fungating and polypoid shaped mass was found in the transverse colon. Partially obstructing, unable to pass scope beyond this area. Multiple biopsies were performed using cold forceps. The scope was then completely withdrawn from the patient and the procedure terminated. PROCEDURE WITHDRAWAL TIME:8minutes ADVERSE EVENTS: There were no complications. IMPRESSIONS: 1. Circumferential mass was found in the transverse colon; partially obstructing, unable to pass scope beyond this area; multiple biopsies were performed using cold forceps 2. Was not performed RECOMMENDATIONS: 1. Await biopsy results. Biopsy results will not be ready for 7-10 days. If you don't hear from us in two weeks, call our office for results. 2. Yearly hemoccult 3. Surgery 4. Surgery and oncology consult RECALL: Return 6 months Colonoscopy, pending biopsy results Brenda Hardwick MD eSigned: Brenda Hardwick MD 04/22/2017 10:29 AM cc:
[2017-04-22] MEDS ORDERED: PANT40TA3 PO (11:23)
--- NOTE | 2017-04-22 11:24 | HHI.DCPOC ---
Discharge Care Plan Diagnosis: (1) GI bleed Goals to Promote Your Health * To prevent worsening of your condition and complications * To maintain your health at the optimal level Directions to Meet Your Goals Take your medications as prescribed Follow your dietary instruction Follow activity as directed Keep your appointments as scheduled Take your immunizations and boosters as scheduled If your symptoms worsen call your PCP, if no PCP go to Urgent Care Center or Emergency Room Smoking is Dangerous to Your Health. Avoid second hand smoke Call the 24-hour hour crisis hotline for domestic abuse at Pallavi Carlos MD R2 Apr 22, 2017 11:24
[2017-04-22 12:00] VITALS: BP 134/62; PULSE 68; RESP 18; TEMP 96.9; O2SAT 99
[2017-04-22] MEDS ORDERED: PROPOFOL 200 MG/20 ML AMP IV ONE (12:00)
[2017-04-22] MEDS ORDERED: LIDOCAINE HCL 1% PF 5 ML SYRINGE OTHER ONE (12:00)
--- NOTE | 2017-04-22 19:44 | EKG ---
Date Performed: 04/22/2017 Time Performed: 08:10:02 PTAGE: 87 years EKG: Sinus rhythm WITH OCCASIONAL SUPRAVENTRICULAR PREMATURE COMPLEXES BORDERLINE ECG PREVIOUS TRACING : 09/23/2006 09.59 Since previous tracing, no significant change noted DOCTOR: Shazia Meyer Interpretating Date/Time 04/22/2017 19:41:37
== END 2017-04-22 14:11 | disposition home or self-care (01) | DRG 375 ==
LOC: NEPC 14:23 → NEDA 16:54 → N06A 20:10
PROVIDERS: ADMIT Family Medicine; ATTEND Family Medicine
PROC: 30233N1 Transfusion of Nonautologous Red Blood Cells into Peripheral Vein, Percutaneous Approach (ICD-10-PCS; principal; 2017-04-19)
PROC: 0DBL8ZX Excision of Transverse Colon, Via Natural or Artificial Opening Endoscopic, Diagnostic (ICD-10-PCS; 2017-04-22)
PROC: 0D738ZZ Dilation of Lower Esophagus, Via Natural or Artificial Opening Endoscopic (ICD-10-PCS; 2017-04-22 09:59)
DX: C18.4 Malignant neoplasm of transverse colon (principal); K92.2 Gastrointestinal hemorrhage, unspecified; D64.9 Anemia, unspecified; K22.2 Esophageal obstruction; N20.0 Calculus of kidney; K29.70 Gastritis, unspecified, without bleeding; N28.1 Cyst of kidney, acquired; R63.4 Abnormal weight loss; H91.90 Unspecified hearing loss, unspecified ear; Z68.22 Body mass index [BMI] 22.0-22.9, adult; Z85.038 Personal history of other malignant neoplasm of large intestine; Z87.891 Personal history of nicotine dependence; Z88.0 Allergy status to penicillin; Z93.3 Colostomy status
CPT/HCPCS: 36430; 80048; 80053; 82378; 82607; 82746; 83010; 83615; 85014; 85018; 85025; 85044; 85610; 85730; 86301; 86850; 86900; 86901; 86920; 88305; 93005; C1769; C9113; J7030; J7050; P9016

== ENCOUNTER → 2017-04-19 | Outpatient (CLI) | payer MEDICARE ==
[~2017-04-19] MED LIST: PANT40TA3 PO; SAWPOW
[2017-04-19 10:21] LABS: BACTERIA, URINE RARE /hpf; BILIRUBIN, URINE NEG (NEG); BLOOD, URINE SMALL (NEG); GLUCOSE,URINE NEG (NEG); HYALINE CAST, URINE 3 /lpf (RARE); KETONE, URINE NEG (NEG); MUCUS URINE FEW /lpf (OCC); NITRITE,URINE NEG (NEG); SQUAMOUS EPITHELIAL CELL URINE <1 /hpf (0-5); URINE COLOR YELLOW (YELLW/STRAW); URINE LEUKOCYTE ESTERASE TRACE (NEG)
[2017-04-19 10:33] LABS: AUTOMATED NEUTROPHIL # 6.6 TH/MM3 (1.8-7.7); BASOPHIL % 0.4 % (0.0-2.0); EOSINOPHIL # 0.2 TH/MM3 (0-0.4); EOSINOPHIL % 2.9 % (0.0-4.0); LYMPH % 5.5 % (9.0-44.0); LYMPHOCYTE # 0.4 TH/MM3 (1.0-4.8); MEAN CELL VOLUME 63.2 FL (80.0-100.0); MEAN CORPUSCULAR HEMOGLOBIN 17.7 PG (27.0-34.0); MEAN PLATELET VOLUME 6.2 FL (7.0-11.0); MONO % 8.2 % (0.0-8.0); MONOCYTE # 0.7 TH/MM3 (0-0.9); PLATELET COUNT 519 TH/MM3 (150-450); RED BLOOD COUNT 3.27 MIL/MM3 (4.50-5.90); RED CELL DISTRIBUTION WIDTH 20.8 % (11.6-17.2); WHITE BLOOD COUNT 7.9 TH/MM3 (4.0-11.0)
[2017-04-19 10:41] LABS: ALBUMIN 2.3 GM/DL (3.4-5.0); ALT (GPT) 12 U/L (12-78); BICARBONATE 26.1 MEQ/L (21.0-32.0); CALCIUM 8.4 MG/DL (8.5-10.1); CHLORIDE 108 MEQ/L (98-107); CREATININE 0.96 MG/DL (0.60-1.30); GLOMERULAR FILTRATION RATE 74 ML/MIN (>89); GLUCOSE,FASTING 100 MG/DL (74-99); SODIUM (NA) 141 MEQ/L (136-145)
[2017-04-19 10:42] LABS: HEMOGLOBIN 5.8 GM/DL (13.0-17.0)
[2017-04-19 10:45] LABS: HEMATOCRIT 20.7 % (39.0-51.0)
[2017-04-19 10:52] LABS: ALKALINE PHOSPHATASE 89 U/L (45-117); AST (GOT) 11 U/L (15-37); BLOOD UREA NITROGEN 18 MG/DL (7-18); CHOLESTEROL 112 MG/DL (120-200); CHOLESTEROL/ HDL RATIO 4.05 RATIO; HDL CHOLESTEROL 27.6 MG/DL (40.0-60.0); LDL CHOLESTEROL 63 MG/DL (0-99); TOTAL BILIRUBIN ADULT 0.6 MG/DL (0.2-1.0); TOTAL PROTEIN 6.8 GM/DL (6.4-8.2); TRIGLYCERIDES 105 MG/DL (42-150)
== END ==
LOC: CLAB 09:38
PROVIDERS: ATTEND General Practice
DX: R53.83 Other fatigue (principal); Z85.038 Personal history of other malignant neoplasm of large intestine
CPT/HCPCS: 36415; 80053; 80061; 81001; 84153; 84443; 85025